=== PATIENT | female | born 1995 | race Caucasian/White ===

== ENCOUNTER 2018-08-11 20:06 | Emergency (ER) | payer BC, SELFPAY ==
[2018-08-11 20:07] VITALS: BP 111/66; PULSE 101; RESP 16; TEMP 36.7; O2SAT 99; BMI 22.3
[2018-08-11 20:58] VITALS: PULSE 84; RESP 16; O2SAT 100
--- NOTE | 2018-08-11 21:06 | ED.VISSUMM ---
- ER Visit Summary Date of Service: 08/11/18 Chief Complaint: Laceration History of Present Illness: The patient is a 22 F with a laceration to her lower lip. The patient was playing soccer and hit the area against another player's head. No other injuries or complaints. Tetanus is up-to-date. Physical Examination: Patient has a 1.5 cm laceration on the inside of her lower lip. Dentition normal. Mouth normal. Neck nontender. Head atraumatic. No other pertinent findings. Test Results: None indicated Emergency Department Course and Treatment: Wound was anesthetized with lidocaine. 2 rapid dissolving Vicryl sutures were placed to keep the wound from gaping open. Follow-up with primary care for recheck. Return for any problems. Treatment Plan: As above Disposition: Discharge Impression: 1. Lower lip laceration 1.5 cm This note was generated with [employer] dictation software. It may contain incorrect words, spelling, and punctuation that were not noted in review of the chart prior to signing ED Disposition - Plan for ED Patient: Chief Complaint: Laceration Referrals: [facility] ,Out of [Primary Care Provider] -
--- NOTE | 2018-08-11 21:09 | ED.DEP ---
ED Disposition - Plan for ED Patient: Chief Complaint: Laceration Instructions: ED Laceration All Referrals: [facility],Out of [Primary Care Provider] -
[2018-08-11 21:15] VITALS: PULSE 87; RESP 14; O2SAT 98
== END 2018-08-11 21:17 | disposition home or self-care (01) ==
PROVIDERS: Emergency Provider Emergency Medicine
DX: S01.511A Laceration without foreign body of lip, initial encounter (principal); W03.XXXA Other fall on same level due to collision with another person, initial encounter; Y93.66 Activity, soccer; Y92.322 Soccer field as the place of occurrence of the external cause; Y99.8 Other external cause status
CPT/HCPCS: 12011; 99282